=== PATIENT | male | born 1985 | race African-American/Black ===

== ENCOUNTER 2017-09-28 18:06 | Emergency (ER) | payer OTHER, MEDICAID ==
--- NOTE | 2017-09-28 23:04 | EKG REPORT ---
SEVERITY:- ABNORMAL ECG - SINUS RHYTHM LEFT ATRIAL ABNORMALITY PROBABLE LEFT VENTRICULAR HYPERTROPHY ST ELEV, PROBABLE NORMAL EARLY REPOL PATTERN : Confirmed by: Melchor Heck 28-Sep-2017 23:03:33
== END 2017-09-28 20:30 | disposition left against medical advice (07) ==
LOC: ER 18:06
DX: Z53.21 Procedure and treatment not carried out due to patient leaving prior to being seen by health care provider (principal)
CPT/HCPCS: 93005; 93010

== ENCOUNTER 2019-10-19 16:26 | Emergency (ER) | payer SELFPAY ==
[2019-10-19 16:49] LABS: ABSOLUTE LYMPHOCYTES (AUTO) 1.7 10^3/uL (0.5-4.7); ABSOLUTE MONOCYTES (AUTO) 0.4 10^3/uL (0.1-1.4); ABSOLUTE NEUT (AUTO) 1.6 10^3/uL (1.7-8.2); BASOPHILS % (AUTO) 0.5 % (0-2); EOSINOPHILS % (AUTO) 0.9 % (0-6); HEMATOCRIT 45.6 % (37.9-51.0); HEMOGLOBIN 15.8 g/dL (13.5-17.0); LYMPHOCYTES % (AUTO) 45.9 % (13-45); MEAN CORPUSCULAR HEMOGLOBIN 31.2 pg (27.0-33.4); MEAN CORPUSCULAR HGB CONC 34.6 g/dL (32.0-36.0); MEAN CORPUSCULAR VOLUME 90 fl (80-97); MONOCYTES % (AUTO) 10.4 % (3-13); PLATELET COUNT 222 10^3/uL (150-450); RED BLOOD COUNT 5.06 10^6/uL (4.35-5.55); RED CELL DISTRIBUTION WIDTH 13.7 % (11.5-14.0); SEGMENTED NEUTROPHILS % (AUTO) 42.3 % (42-78); TOTAL CELLS COUNTED % (AUTO) 100 %; WHITE BLOOD COUNT 3.7 10^3/uL (4.0-10.5)
[2019-10-19 17:05] LABS: ALBUMIN 4.5 g/dL (3.5-5.0); ALKALINE PHOSPHATASE 49 U/L (38-126); ANION GAP 6 (5-19); ASPARTATE AMINO TRANSFERASE 21 U/L (17-59); BILIRUBIN,TOTAL 0.7 mg/dL (0.2-1.3); BLOOD UREA NITROGEN 20 mg/dL (7-20); CALCIUM 9.9 mg/dL (8.4-10.2); CARBON DIOXIDE 33 mmol/L (22-30); CHLORIDE 99 mmol/L (98-107); CREATINE KINASE 49 U/L (55-170); GLUCOSE 107 mg/dL (75-110); POTASSIUM 4.1 mmol/L (3.6-5.0); TOTAL PROTEIN 7.7 g/dL (6.3-8.2)
[2019-10-19 17:16] LABS: CREATINE KINASE MB 0.47 ng/mL (<4.55)
[2019-10-19 17:20] LABS: TROPONIN I < 0.012 ng/mL
[2019-10-19] MEDS ORDERED: KETOROLAC TROMETHAMINE INJ/PF 30 MG/1 ML SDV IV ONE (18:39)
[2019-10-19] MEDS ORDERED: LIDOCAINE 5% (700 MG) TRANSDERMAL ADH..PATCH TP ONE (18:39)
--- NOTE | 2019-10-19 19:51 | RADIOLOGY REPORT (SQ) ---
EXAM DESCRIPTION: CHEST SINGLE VIEW IMAGES COMPLETED DATE/TIME: 10/19/2019 7:43 pm REASON FOR STUDY: CP COMPARISON: None. EXAM PARAMETERS: NUMBER OF VIEWS: One view. TECHNIQUE: Single frontal radiographic view of the chest acquired. RADIATION DOSE: NA LIMITATIONS: None. FINDINGS: LUNGS AND PLEURA: No opacities, masses or pneumothorax. No pleural effusion. MEDIASTINUM AND HILAR STRUCTURES: No masses. Contour normal. HEART AND VASCULAR STRUCTURES: Heart normal in size. Normal vasculature. BONES: No acute findings. HARDWARE: None in the chest. OTHER: No other significant finding. IMPRESSION: NO ACUTE RADIOGRAPHIC FINDING IN THE CHEST. TECHNICAL DOCUMENTATION: JOB ID: [id number] [employer]- All Rights Reserved Reading location - IP/workstation name: [email or web address]
[2019-10-19 21:05] VITALS: BP 117/79
--- NOTE | 2019-10-19 21:35 | EKG REPORT ---
SEVERITY:- ABNORMAL ECG - SINUS RHYTHM CONSIDER LEFT VENTRICULAR HYPERTROPHY ST ELEVATION NORMAL VARIANT : Confirmed by: Dejan Blevins MD 19-Oct-2019 21:35:06
--- NOTE | 2019-10-20 00:59 | ER Document Report ---
Entered by FEI SMITH SCRIBE 10/19/19 [id number] Acting as scribe for:SIMBA AVILES DO ED Cardiac - General Chief Complaint: Chest Pain > 30 Stated Complaint: CHEST PAINS Time Seen by Provider: 10/19/19 16:59 Mode of Arrival: Ambulatory Information source: Patient Notes: This 34 year old male patient presents to the emergency department today with complaints of chest pain for the last 2 to 3 days. Patient reports that his pain is exacerbated with exhalation. Patient states that the first day he had this pain it was pretty mild and he did not think much of it. The pain became more severe yesterday, but this morning it did not seem to be that bad per history. Patient reports that this afternoon he had to help his brother clean and he thinks that the chemicals may have exacerbated his pain because the pain became much more severe shortly after inhaling these chemicals. Patient states that he walked outside and felt dizzy. Patient denies a cough, fever, or any sick contacts. Patient denies any recent cocaine usage. TRAVEL OUTSIDE OF THE [place] IN LAST 30 DAYS: No - Related Data Allergies/Adverse Reactions: No Known Allergies Allergy (Unverified 10/19/19 17:24) Past Medical History - General Information source: Patient - Social History Smoking Status: Never Smoker Cigarette use (# per day): No Frequency of alcohol use: None Drug Abuse: Marijuana - occasionally. denies: Cocaine Occupation: [employer] Lives with: Family Family History: Reviewed & Not Pertinent Patient has suicidal ideation: No Patient has homicidal ideation: No - Past Medical History Cardiac Medical History: Reports: Hx Hypertension Pulmonary Medical History: Reports: Hx Asthma Surgical Hx: Negative Review of Systems - Review of Systems Constitutional: denies: Fever EENT: No symptoms reported Cardiovascular: See HPI, Chest pain, Dizziness Respiratory: See HPI, Hurts to breathe, Short of breath - "only when the pain becomes severe". denies: Cough Gastrointestinal: No symptoms reported Genitourinary: No symptoms reported Male Genitourinary: No symptoms reported Musculoskeletal: No symptoms reported Skin: No symptoms reported Hematologic/Lymphatic: No symptoms reported Neurological/Psychological: No symptoms reported -: Yes All other systems reviewed and negative Physical Exam - Vital signs Vitals: Resp 10 L 10/19/19 16:44 Interpretation: Normal - General General appearance: Appears well, Alert - HEENT Head: Normocephalic, Atraumatic Eyes: Normal Pupils: PERRL - Respiratory Respiratory status: No respiratory distress Chest status: Tender - reproducible chest wall pain Breath sounds: Normal Chest palpation: Normal - Cardiovascular Rhythm: Regular Heart sounds: Normal auscultation Murmur: No - Abdominal Inspection: Normal Distension: No distension Bowel sounds: Normal Tenderness: Nontender Organomegaly: No organomegaly - Back Back: Normal, Nontender - Extremities General upper extremity: Normal inspection, Nontender, Normal ROM General lower extremity: Normal inspection, Nontender, Normal ROM - Neurological Neuro grossly intact: Yes Cognition: Normal Orientation: AAOx4 Aleksandr Coma Scale Eye Opening: Spontaneous Aleksandr Coma Scale Verbal: Oriented Aleksandr Coma Scale Motor: Obeys Commands Aleksandr Coma Scale Total: 15 Speech: Normal - Psychological Associated symptoms: Normal affect, Normal mood - Skin Skin Temperature: Warm Skin Moisture: Dry Skin Color: Normal Course - Re-evaluation Re-evalutation: 10/19/19 20:32 Repeat troponin is negative. Pain resolved. Chest xray within normal limits. Feels well and wishes to be discharged. Patient is a 34-year-old male who comes in with intermittent chest pain since Monday. 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 Helped his brother move some things today and began having pain again. Reproducible. EKG with no ST elevation. Symptoms more consistent with chest wall strain. Reproducible tenderness to palpation. Pain resolved with Toradol and Lidoderm patch. Patient states he has a history of high blood pressure although his blood pressure here has been normal without any medication. Patient does smoke. Otherwise his heart score still makes him low risk. Repeat troponin negative. Patient will be discharged home and is to follow-up with his primary care doctor. Understands agrees with plan. Stable for discharge. - Vital Signs Vital signs: Temp Pulse Resp BP Pulse Ox 98.4 F 75 18 117/79 98 10/19/19 21:01 10/19/19 21:01 10/19/19 21:01 10/19/19 21:01 10/19/19 21:01 - Laboratory Result Diagrams: 10/19/19 16:35 10/19/19 16:35 Laboratory results interpreted by me: 10/19/19 10/19/19 16:35 16:35 WBC 3.7 L Lymph % (Auto) 45.9 H Absolute Neuts (auto) 1.6 L Carbon Dioxide 33 H Creatine Kinase 49 L - Diagnostic Test Radiology reviewed: Reports reviewed - EKG Interpretation by Me EKG shows normal: Sinus rhythm Rate: Normal When compared to previous EKG there are: No significant change Discharge - Discharge Clinical Impression: Chest wall pain Condition: Stable Disposition: HOME, SELF-CARE Instructions: Chest Wall Pain ([facility]) Prescriptions: Ibuprofen [Ibu] 800 mg PO BIDP PRN #20 tablet PRN Reason: Lidocaine [Lidoderm 5% (700 mg) Transdermal Patch] 1 patch TP DAILY #14 adh..patch Forms: Return to Work I personally performed the services described in the documentation, reviewed and edited the documentation which was dictated to the scribe in my presence, and it accurately records my words and actions.
== END 2019-10-19 21:04 | disposition home or self-care (01) ==
LOC: ER 16:26
DX: R07.89 Other chest pain (principal); R07.1 Chest pain on breathing; J45.909 Unspecified asthma, uncomplicated; R06.02 Shortness of breath; R42 Dizziness and giddiness; Z77.098 Contact with and (suspected) exposure to other hazardous, chiefly nonmedicinal, chemicals; F12.10 Cannabis abuse, uncomplicated
CPT/HCPCS: 93005; 99284; 96374; 36415; 82553; 82550; 85025; 80053; 84484; 71045; 93010; J1885